=== PATIENT | female | born 1940 | race Caucasian/White ===

== ENCOUNTER 2022-04-14 09:33 | Day surgery (SDC) | payer MEDICARE ==
[2022-04-14] MEDS ORDERED: Depo-Medrol 40 MG/ML IM ONE (09:34)
[2022-04-14] MEDS ORDERED: LIDOCAINE HCL 2% 100 MG/5 ML IJ ONE (09:34)
[2022-04-14] MEDS ORDERED: Lactated Ringers 1,000 ML IV ONE (11:11)
[2022-04-14] MEDS ORDERED: DIPRIVAN 200 MG/20 ML IV ONE (11:13)
--- NOTE | 2022-04-14 12:42 | XRAY ---
Indication: Bilateral L4-S1 MBB. Intraoperative fluoroscopy provided for 14 seconds. Single digital spot image submitted for interpretation demonstrate posterior needle tips projecting over the expected left and right L4-S1 nerve roots. Correlate with intraoperative findings/report. Incidental L3-L4 spinous process fusion hardware.
--- NOTE | 2022-04-14 12:44 | XRAY ---
14 seconds fluoroscopy time in surgery for bilateral L4-S1 MBB.
== END 2022-04-14 11:55 | disposition home or self-care (01) ==
LOC: SDC-PAIN 09:33
PROVIDERS: ATTEND Psychiatry & Neurology Pain Medicine
DX: M47.816 Spondylosis without myelopathy or radiculopathy, lumbar region (principal); E11.9 Type 2 diabetes mellitus without complications; Z79.899 Other long term (current) drug therapy
CPT/HCPCS: 64493; 64494; 72020; 77002; 82947; J1030; J2704

== ENCOUNTER 2022-05-05 09:15 | Day surgery (SDC) | payer MEDICARE ==
[2022-05-05] MEDS ORDERED: Marcaine Mpf 0.5% Vial 30 Ml IJ ONE (09:16)
[2022-05-05] MEDS ORDERED: Lactated Ringers 1,000 ML IV ONE (11:20)
[2022-05-05] MEDS ORDERED: DIPRIVAN 200 MG/20 ML IV ONE (11:33)
--- NOTE | 2022-05-05 12:24 | XRAY ---
Indication: Bilateral L4-S1 MBB. Intraoperative fluoroscopy provided for 11 seconds. Single digital spot image submitted for interpretation demonstrates posterior needle tips projecting over the expected left and right L4-S1 nerve roots. Correlate with intraoperative findings/report. Incidental L3-L4 spinous process fusion hardware.
--- NOTE | 2022-05-05 16:46 | XRAY ---
11 seconds of fluoroscopy was used in surgery for a bilateral L4-S1 MBB.
== END 2022-05-05 11:56 | disposition home or self-care (01) ==
LOC: SDC-PAIN 09:15
PROVIDERS: ATTEND Psychiatry & Neurology Pain Medicine
DX: M47.816 Spondylosis without myelopathy or radiculopathy, lumbar region (principal); E11.9 Type 2 diabetes mellitus without complications; Z79.899 Other long term (current) drug therapy
CPT/HCPCS: 64493; 64494; 72020; 77002; 82947; J2704

== ENCOUNTER 2022-05-19 14:58 | Day surgery (SDC) | payer MEDICARE ==
[2022-05-19] MEDS ORDERED: Depo-Medrol 40 MG/ML IM ONE (14:59)
[2022-05-19] MEDS ORDERED: Marcaine Mpf 0.5% Vial 30 Ml IJ ONE (14:59)
[2022-05-19] MEDS ORDERED: XYLOCAINE-MPF 1% 5ML SDV IJ ONE ×2 (14:59)
[2022-05-19] MEDS ORDERED: DIPRIVAN 200 MG/20 ML IV ONE (16:30)
[2022-05-19] MEDS ORDERED: Lactated Ringers 1,000 ML IV ONE (16:39)
--- NOTE | 2022-05-20 18:32 | XRAY ---
22 seconds fluoroscopy was used in surgery for a right L4-S1 RFA.
--- NOTE | 2022-05-21 21:47 | XRAY ---
Indication: Right L4-S1 RFA. Intraoperative fluoroscopy provided for 22 seconds. 3 digital spot images submitted for interpretation demonstrates posterior needle tips projecting over the expected right L4-S1 nerve roots. An orthopedic device is seen projected over the spinous process of L3. Correlate with intraoperative findings/report.
== END 2022-05-19 16:56 | disposition home or self-care (01) ==
LOC: SDC-PAIN 14:58
PROVIDERS: ATTEND Psychiatry & Neurology Pain Medicine
DX: M47.816 Spondylosis without myelopathy or radiculopathy, lumbar region (principal); E11.9 Type 2 diabetes mellitus without complications; Z79.899 Other long term (current) drug therapy
CPT/HCPCS: 64635; 64636; 72100; 77002; 82947; 99100; J1030; J2704

== ENCOUNTER 2022-06-30 09:25 | Day surgery (SDC) | payer MEDICARE ==
[2022-06-30] MEDS ORDERED: Marcaine Mpf 0.5% Vial 30 Ml IJ ONE (09:26)
[2022-06-30] MEDS ORDERED: Depo-Medrol 40 MG/ML IM ONE (09:26)
[2022-06-30] MEDS ORDERED: XYLOCAINE-MPF 1% 5ML SDV IJ ONE (09:26)
[2022-06-30] MEDS ORDERED: DIPRIVAN 200 MG/20 ML IV ONE (11:09)
[2022-06-30] MEDS ORDERED: Lactated Ringers 1,000 ML IV ONE (12:15)
--- NOTE | 2022-06-30 14:32 | XRAY ---
Indication: Left L4-S1 RFA. Intraoperative fluoroscopy provided for 22 seconds. 4 digital spot image submitted for interpretation demonstrates posterior needle tips projecting over the expected left L4-S1 nerve roots. Correlate with intraoperative findings/report. Incidental L3-L4 spinous process hardware.
--- NOTE | 2022-06-30 16:44 | XRAY ---
22 seconds of fluoroscopy was used in surgery for a left L4-S1 RFA.
== END 2022-06-30 11:45 | disposition home or self-care (01) ==
LOC: SDC-PAIN 09:25
PROVIDERS: ATTEND Psychiatry & Neurology Pain Medicine
DX: M47.817 Spondylosis without myelopathy or radiculopathy, lumbosacral region (principal); E11.9 Type 2 diabetes mellitus without complications; Z79.899 Other long term (current) drug therapy
CPT/HCPCS: 64635; 64636; 72100; 77002; 82947; 99100; J1030; J2704

== ENCOUNTER 2022-08-04 10:40 | Day surgery (SDC) | payer MEDICARE ==
[2022-08-04] MEDS ORDERED: BUPIVACAINE 0.5% VIAL IJ ONE (10:41)
[2022-08-04] MEDS ORDERED: Depo-Medrol 40 MG/ML IM ONE (10:41)
[2022-08-04] MEDS ORDERED: DIPRIVAN 200 MG/20 ML IV ONE (12:23)
[2022-08-04] MEDS ORDERED: Lactated Ringers 1,000 ML IV ONE (14:30)
--- NOTE | 2022-08-04 18:24 | XRAY ---
Indication: Bilateral SI joint injection. Intraoperative fluoroscopy provided for 19 seconds. 3 digital spot image submitted for interpretation demonstrates posterior needle tip projecting over the expected left and right SI joints. Correlate with intraoperative findings/report.
--- NOTE | 2022-08-04 18:31 | XRAY ---
19 seconds of fluoroscopy was used in surgery for a bilateral sacroiliac joint injection.
== END 2022-08-04 12:47 | disposition home or self-care (01) ==
LOC: SDC-PAIN 10:40
PROVIDERS: ATTEND Psychiatry & Neurology Pain Medicine
DX: M46.1 Sacroiliitis, not elsewhere classified (principal); E11.9 Type 2 diabetes mellitus without complications; Z79.899 Other long term (current) drug therapy
CPT/HCPCS: 27096; 72202; 77002; 82947; 99100; J1030; J2704; G0260

== ENCOUNTER 2024-01-25 15:38 | Day surgery (SDC) | payer MEDICARE ==
[2024-01-25] MEDS ORDERED: LIDOCAINE HCL 1% 50 MG/5 ML VL PF IJ ONE (15:39)
[2024-01-25] MEDS ORDERED: BUPIVACAINE 0.5% VIAL IJ ONE (15:39)
[2024-01-25] MEDS ORDERED: Depo-Medrol 40 MG/ML IM ONE (15:39)
--- NOTE | 2024-01-25 19:09 | XRAY ---
Indication: Right shoulder and subacromial bursa injection. Intraoperative fluoroscopy provided for 17 seconds. 3 digital spot images submitted for interpretation demonstrates needle tip projecting over right glenohumeral joint superiorly. Second needle tip subacromial. Small amount of contrast injected for both needle tip placement. Correlate with intraoperative findings/report.
--- NOTE | 2024-01-26 08:48 | XRAY ---
17 seconds of fluoroscopy was used in surgery for a right intra-articular shoulder and subacromial bursa injection.
== END 2024-01-25 18:01 | disposition home or self-care (01) ==
LOC: SDC-PAIN 15:38
PROVIDERS: ATTEND Psychiatry & Neurology Pain Medicine
DX: M19.011 Primary osteoarthritis, right shoulder (principal); E11.9 Type 2 diabetes mellitus without complications
CPT/HCPCS: 20610; 73030; 77002; 82947; J1030; J2001; Q9966